=== PATIENT | male | born 2000 | race Two or more races ===

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

== ENCOUNTER 2022-06-25 21:19 | Emergency (ER) | payer MEDICAID ==
[2022-06-25] MEDS ORDERED: Magnesium Hydroxide 400 MG/5 ML Susp 30 ML Cup PO ONE (22:23)
[2022-06-25 23:09] VITALS: BP 127/74; PULSE 108
== END 2022-06-25 23:13 | disposition home or self-care (01) ==
LOC: FB.ED 21:19
DX: K59.00 Constipation, unspecified (principal); R10.84 Generalized abdominal pain
CPT/HCPCS: 81001; 99284; A9270

== ENCOUNTER 2022-07-06 01:57 | Emergency (ER) | payer MEDICAID ==
[2022-07-06] MEDS ORDERED: Sodium Chloride 0.9% 10 ML Syringe FLUSH PRN (02:26)
[2022-07-06] MEDS ORDERED: Ondansetron 4 MG/2 ML SDV IVPUSH ONE (02:29)
[2022-07-06] MEDS ORDERED: Ketorolac 30 MG/ML SDV IVPUSH ONE (02:29)
[2022-07-06] MEDS ORDERED: Sodium Chloride 0.9% 1,000 ML IV SCH (02:30)
[2022-07-06] MEDS ORDERED: Alum Hydroxide/Mag Hydroxide 15 ML, Lidocaine 2% 15 ML PO ONE ×2 (02:58)
[2022-07-06 02:59] LABS: ESTIMATED GFR 130 mL/min (>60)
[2022-07-06] MEDS ORDERED: Iopamidol 755 Mg/ML 75 ML Bottle IV ONE (03:19)
[2022-07-06 04:05] VITALS: BP 141/86; PULSE 83
== END 2022-07-06 04:50 | disposition home or self-care (01) ==
LOC: FB.ED 01:57
DX: K21.9 Gastro-esophageal reflux disease without esophagitis (principal); K29.70 Gastritis, unspecified, without bleeding; Z20.822 Contact with and (suspected) exposure to COVID-19
CPT/HCPCS: 36415; 74177; 80053; 81001; 82150; 83690; 85025; 87651-QW; 96361; 96374; 96375; 99284-25; A9270-GY; J1885; J2405; J3490; J7030; Q9967; U0002

== ENCOUNTER 2023-04-05 02:49 | Emergency (ER) | payer MEDICAID ==
[2023-04-05] MEDS ORDERED: Lidocaine 1% PF 2 ML SDV INJECT ONE (02:50)
[2023-04-05] MEDS: Diphtheria,Pertussis(Acell),Tetanus Vaccine 0.5 ML Syringe IM ONE (04:03)
[2023-04-05 04:50] VITALS: BP 118/92; PULSE 83
== END 2023-04-05 04:10 | disposition home or self-care (01) ==
LOC: FB.ED 02:49
DX: S01.112A Laceration without foreign body of left eyelid and periocular area, initial encounter (principal); J45.909 Unspecified asthma, uncomplicated; Z79.899 Other long term (current) drug therapy; Z86.16 Personal history of COVID-19; V00.131A Fall from skateboard, initial encounter; Y93.51 Activity, roller skating (inline) and skateboarding
CPT/HCPCS: 12011; 90471; 90715; 99282-25

== ENCOUNTER 2023-07-04 23:07 | Emergency (ER) | payer MEDICAID ==
[2023-07-04] MEDS ORDERED: Sodium Chloride 0.9% 10 ML Syringe FLUSH PRN (23:08)
[2023-07-04 23:33] LABS: BASOPHILS ABSOLUTE AUTO 0.1 x10-3/uL (0.0-0.3); BASOPHILS PERCENT AUTO 0.6 % (0.3-3.8); EOSINOPHILS ABSOLUTE AUTO 0.2 x10-3/uL (0.0-0.6); EOSINOPHILS PERCENT AUTO 2.2 % (0.1-6.8); HEMATOCRIT 39.7 % (38.3-50.1); HEMOGLOBIN 13.6 g/dL (12.9-17.7); LYMPHOCYTES ABSOLUTE AUTO 3.3 x10-3/uL (0.5-4.5); LYMPHOCYTES PERCENT AUTO 31.8 % (15.8-45.3); MEAN CORPUSCULAR HEMOGLOBIN 30.2 pg (27.0-33.3); MEAN CORPUSCULAR HGB CONC 34.2 g/dL (28.7-35.3); MEAN CORPUSCULAR VOLUME 88.2 fL (80.8-98.7); MEAN PLATELET VOLUME 7.4 fL (6.7-11.0); MONOCYTES ABSOLUTE AUTO 0.8 x10-3/uL (0.0-1.2); MONOCYTES PERCENT AUTO 8.1 % (5.5-15.2); NEUTROPHILS ABSOLUTE AUTO 5.9 x10-3/uL (1.7-6.9); NEUTROPHILS PERCENT AUTO 57.3 % (40.3-71.8); PLATELET COUNT,PLT 271 x10(3)uL (117-477); RED CELL DISTRIBUTION WIDTH 13.1 % (12.4-15.0); WHITE BLOOD CELL COUNT,WBC 10.3 x10-3/uL (3.2-10.1)
[2023-07-04] MEDS: Thiamine 100 MG in Sodium Chloride 0.9% 50 ML IV ONE (23:34)
[2023-07-04] MEDS: Sodium Chloride 0.9% 1,000 ML IV SCH (23:35)
[2023-07-04] MEDS: Prochlorperazine 10 MG/2 ML SDV IVPUSH ONE (23:35)
[2023-07-04 23:41] LABS: BLOOD UREA NITROGEN,BUN 20 mg/dL (7-18); CALCIUM 9.2 mg/dL (8.6-10.2); CARBON DIOXIDE,CO2 24 mmol/L (21-32); CHLORIDE,CL 106 mmol/L (100-110); CREATININE 0.8 mg/dL (0.70-1.30); ESTIMATED GFR 129 mL/min (>60); GLUCOSE RANDOM 89 mg/dL (80-116); POTASSIUM,K 3.5 mmol/L (3.5-5.3); SODIUM,NA 143 mmol/L (135-145)
[2023-07-04 23:47] VITALS: PULSE 72
[2023-07-04 23:48] LABS: MAGNESIUM 2.1 mg/dL (1.8-2.5); PHOSPHORUS 6.4 mg/dL (2.6-4.6)
[2023-07-04 23:52] LABS: A/G RATIO 1.3; ALANINE AMINOTRANSFERASE,ALT 27 U/L (12-36); ALBUMIN 4.2 g/dL (3.5-5.2); ALKALINE PHOSPHATASE 114 IU/L (56-112); ASPARTATE AMNIOTRANSFERASE,AST 22 IU/L (5-25); BILIRUBIN TOTAL 0.2 mg/dL (0.1-1.3); PROTEIN TOTAL,TP 7.5 g/dL (6.0-8.0)
[2023-07-04 23:54] LABS: ETHANOL BLOOD MEDICAL 0.23 % (<0.03)
[2023-07-05 01:30] VITALS: BP 110/68
== END 2023-07-05 01:31 | disposition home or self-care (01) ==
LOC: FB.ED 23:07
DX: F10.929 Alcohol use, unspecified with intoxication, unspecified (principal); J45.909 Unspecified asthma, uncomplicated; Z86.16 Personal history of COVID-19
CPT/HCPCS: 36415; 80053; 80307; 83690; 83735; 84100; 85025; 96365; 96366; 96375; 99284-25; J0780; J3411; J3490; J7030

== ENCOUNTER 2023-08-28 18:18 | Emergency (ER) | payer MEDICAID ==
[2023-08-28 18:38] VITALS: PULSE 88
[2023-08-28] MEDS ORDERED: Ondansetron 8 MG Tab.DIS PO ONE (19:03)
[2023-08-28] MEDS ORDERED: Pantoprazole 40 MG Tab.CR PO STA (19:04)
[2023-08-28 19:15] LABS: INFLUENZA A NAA NEGATIVE (NEGATIVE); INFLUENZA B NAA NEGATIVE (NEGATIVE); RESPIRATORY SYNCYTIAL VIR NAA NEGATIVE (NEGATIVE)
[2023-08-28 19:17] LABS: CORONAVIRUS COVID-19 NAA POSITIVE (NEGATIVE)
[2023-08-28 20:03] VITALS: BP 131/72
== END 2023-08-28 20:04 | disposition home or self-care (01) ==
LOC: FB.ED 18:18
DX: U07.1 COVID-19 (principal)
CPT/HCPCS: 0241U; 99283; 99284

== ENCOUNTER 2023-09-26 21:57 | Emergency (ER) | payer MEDICAID ==
[2023-09-26] MEDS ORDERED: Triamcinolone Acetonide 40 MG/ML 1 ML SDV IM ONE (22:15)
[2023-09-26] MEDS ORDERED: hydrOXYzine HCl 50 MG/ML SDV IM ONE (22:15)
[2023-09-26 22:18] VITALS: BP 117/56
[2023-09-26 22:42] VITALS: PULSE 89
== END 2023-09-26 22:42 | disposition home or self-care (01) ==
LOC: FB.ED 21:57
DX: T78.40XA Allergy, unspecified, initial encounter (principal); Z86.16 Personal history of COVID-19; Z79.899 Other long term (current) drug therapy
CPT/HCPCS: 96372; 99283; J3301; J3410

== ENCOUNTER 2023-09-28 20:56 | Emergency (ER) | payer MEDICAID ==
[2023-09-28 22:29] VITALS: BP 127/65; PULSE 92
== END 2023-09-28 21:45 | disposition home or self-care (01) ==
LOC: FB.ED 20:56
DX: F41.9 Anxiety disorder, unspecified (principal); T78.40XA Allergy, unspecified, initial encounter; Z86.16 Personal history of COVID-19
CPT/HCPCS: 99283

== ENCOUNTER 2023-11-14 17:37 | Emergency (ER) | payer MEDICAID ==
[2023-11-14] MEDS ORDERED: Ondansetron 4 MG Tab.DIS PO ONE (17:38)
[2023-11-14] MEDS: Sodium Chloride 0.9% 10 ML Syringe FLUSH PRN (18:23)
[2023-11-14] MEDS: Sodium Chloride 0.9% 1,000 ML IV ONE (18:30)
[2023-11-14] MEDS: Ondansetron 4 MG/2 ML SDV IVPUSH ONE (18:30)
[2023-11-14 18:38] LABS: HEMATOCRIT 46.3 % (38.3-50.1); HEMOGLOBIN 15.9 g/dL (12.9-17.7); MEAN CORPUSCULAR HEMOGLOBIN 30.7 pg (27.0-33.3); MEAN CORPUSCULAR HGB CONC 34.4 g/dL (28.7-35.3); MEAN CORPUSCULAR VOLUME 89.2 fL (80.8-98.7); MEAN PLATELET VOLUME 7.2 fL (6.7-11.0); PLATELET COUNT,PLT 204 x10(3)uL (117-477); RED BLOOD CELL COUNT 5.18 x10(6)uL (3.90-5.90); RED CELL DISTRIBUTION WIDTH 13.7 % (12.4-15.0); WHITE BLOOD CELL COUNT,WBC 3.8 x10-3/uL (3.2-10.1)
[2023-11-14 18:39] LABS: INFLUENZA A NAA NEGATIVE (NEGATIVE); INFLUENZA B NAA POSITIVE (NEGATIVE); RESPIRATORY SYNCYTIAL VIR NAA NEGATIVE (NEGATIVE)
[2023-11-14 18:40] LABS: CORONAVIRUS COVID-19 NAA NEGATIVE (NEGATIVE)
[2023-11-14 18:45] LABS: BLOOD UREA NITROGEN,BUN 17 mg/dL (7-18); CALCIUM 9.3 mg/dL (8.6-10.2); CARBON DIOXIDE,CO2 30 mmol/L (21-32); CHLORIDE,CL 102 mmol/L (100-110); EST CRCL DRUG DOSING (CG) 105.45 mL/min; ESTIMATED GFR 110 mL/min (>60); GLUCOSE RANDOM 97 mg/dL (80-116); POTASSIUM,K 3.9 mmol/L (3.5-5.3); SODIUM,NA 140 mmol/L (135-145)
[2023-11-14 18:51] LABS: A/G RATIO 1.1; ALANINE AMINOTRANSFERASE,ALT 25 U/L (12-36); ALBUMIN 3.9 g/dL (3.5-5.2); ALKALINE PHOSPHATASE 75 IU/L (56-112); ASPARTATE AMNIOTRANSFERASE,AST 22 IU/L (5-25); BILIRUBIN TOTAL 0.2 mg/dL (0.1-1.3); MAGNESIUM 1.9 mg/dL (1.8-2.5); PROTEIN TOTAL,TP 7.4 g/dL (6.0-8.0)
[2023-11-14 19:11] LABS: BAND PERCENT MAN 4 % (0-6); LYMPHOCYTES PERCENT MAN 36 % (13-37); MONOCYTES PERCENT MAN 10 % (4-12); SEG NEUTROPHILS PERCENT MAN 50 % (46-82)
[2023-11-14 19:58] VITALS: BP 117/72; PULSE 81
== END 2023-11-14 19:56 | disposition home or self-care (01) ==
LOC: FB.ED 17:37
DX: J10.1 Influenza due to other identified influenza virus with other respiratory manifestations (principal); E86.0 Dehydration; R11.2 Nausea with vomiting, unspecified; Z86.16 Personal history of COVID-19
CPT/HCPCS: 0241U; 71046; 80053; 83605; 83690; 83735; 85025; 87651-QW; 96361; 96374; 99283; 99284-25; J2405; J3490; J7030; Q0162

== ENCOUNTER 2024-02-14 23:33 | Emergency (ER) | payer BC, MEDICAID ==
[2024-02-14 23:55] VITALS: BP 133/68; PULSE 183
== END 2024-02-15 01:30 | disposition home or self-care (01) ==
LOC: FB.ED 23:33
DX: S06.0X0A Concussion without loss of consciousness, initial encounter (principal); Z79.899 Other long term (current) drug therapy; Z86.16 Personal history of COVID-19; W22.8XXA Striking against or struck by other objects, initial encounter; Y93.71 Activity, boxing
CPT/HCPCS: 70450; 99283

== ENCOUNTER 2024-04-15 18:02 | Emergency (ER) | payer SELFPAY ==
[2024-04-15] MEDS ORDERED: traMADol 50 MG Tab PO ONE (18:03)
[2024-04-15 18:17] VITALS: BP 123/76; PULSE 99
[2024-04-15 18:32] LABS: BILIRUBIN,URINE NEGATIVE (NEGATIVE); GLUCOSE,URINE NORMAL (NORMAL); KETONES,URINE NEGATIVE (NEGATIVE); LEUKOCYTE ESTERASE,URINE NEGATIVE (NEGATIVE); NITRITE,URINE NEGATIVE (NEGATIVE); OCCULT BLOOD,URINE NEGATIVE (NEGATIVE); PROTEIN,URINE NEGATIVE (NEGATIVE); UROBILINOGEN,URINE NORMAL (NEGATIVE)
[2024-04-15] MEDS ORDERED: Ketorolac 30 MG/ML SDV IM ONE (18:34)
[2024-04-15 18:35] LABS: APPEARANCE,URINE CLEAR (CLEAR); COLOR,URINE YELLOW (YELLOW); RBC,URINE 0-5 (0-5); SQUAMOUS EPITHELIAL CELLS,UR RARE (NS,R,O); WBC,URINE 0-5 (0-5)
[2024-04-15] MEDS: Acetaminophen 500 MG Tab PO ONE (18:44)
[2024-04-15] MEDS: Ibuprofen 600 MG Tab PO ONE (18:44)
[2024-04-15] MEDS: predniSONE 20 MG Tab PO ONE (19:03)
== END 2024-04-15 19:13 | disposition home or self-care (01) ==
LOC: FB.ED 18:02
DX: M54.50 Low back pain, unspecified (principal); M79.605 Pain in left leg; J45.909 Unspecified asthma, uncomplicated; Z86.16 Personal history of COVID-19
CPT/HCPCS: 81001; 99283; A9270; J7512

== ENCOUNTER 2024-05-06 21:36 | Emergency (ER) | payer SELFPAY ==
[2024-05-06 22:06] VITALS: BP 124/75; PULSE 69
[2024-05-06] MEDS: Pantoprazole 40 MG Vial IVPUSH ONE (22:20)
[2024-05-06] MEDS: Ondansetron 4 MG/2 ML SDV IVPUSH ONE (22:20)
== END 2024-05-06 22:44 | disposition home or self-care (01) ==
LOC: FB.ED 21:36
DX: R11.10 Vomiting, unspecified (principal); K21.9 Gastro-esophageal reflux disease without esophagitis; J45.909 Unspecified asthma, uncomplicated; Z86.16 Personal history of COVID-19; Z79.899 Other long term (current) drug therapy
CPT/HCPCS: 96374; 96375; 99283; J2405; J2470

== ENCOUNTER 2024-06-02 03:34 | Emergency (ER) | payer SELFPAY ==
[2024-06-02 03:46] VITALS: BP 122/86; PULSE 87
[2024-06-02] MEDS: Amoxicillin/Clavulanate K 875-125 MG Tab PO ONE (04:09)
== END 2024-06-02 04:20 | disposition home or self-care (01) ==
LOC: FB.ED 03:34
DX: S61.552A Open bite of left wrist, initial encounter (principal); S61.452A Open bite of left hand, initial encounter; S61.451A Open bite of right hand, initial encounter; Z79.899 Other long term (current) drug therapy; Z86.16 Personal history of COVID-19; W55.01XA Bitten by cat, initial encounter
CPT/HCPCS: 99283; A9270-GY

== ENCOUNTER 2025-03-16 20:47 | Emergency (ER) | payer MEDICAID, OTHER ==
[2025-03-16] MEDS: hydrOXYzine HCl 50 MG/ML SDV IM ONE (21:17)
[2025-03-16] MEDS: Ketorolac 30 MG/ML SDV IM ONE (21:21)
[2025-03-16 21:34] VITALS: BP 136/70; PULSE 88
== END 2025-03-16 21:34 | disposition home or self-care (01) ==
LOC: FB.ED 20:47
DX: R10.9 Unspecified abdominal pain (principal); F41.9 Anxiety disorder, unspecified; J45.909 Unspecified asthma, uncomplicated; Z86.16 Personal history of COVID-19; K21.9 Gastro-esophageal reflux disease without esophagitis; Z79.899 Other long term (current) drug therapy
CPT/HCPCS: 96372; 99283; J1885; J3410

== ENCOUNTER 2025-09-05 22:20 | Emergency (ER) | payer MEDICAID ==
[2025-09-05 22:51] VITALS: BP 126/88; PULSE 88
== END 2025-09-05 23:20 | disposition home or self-care (01) ==
LOC: FB.ED 22:20
DX: S80.861A Insect bite (nonvenomous), right lower leg, initial encounter (principal); Z86.16 Personal history of COVID-19; W57.XXXA Bitten or stung by nonvenomous insect and other nonvenomous arthropods, initial encounter
CPT/HCPCS: 99281; A9270-GY